=== PATIENT | female | born 1985 | race American Indian/Alaskan Native ===

== ENCOUNTER 2021-10-07 17:16 | Emergency (ER) | payer SELFPAY ==
[2021-10-07 17:56] VITALS: BP 137/92
== END 2021-10-08 08:24 | disposition left against medical advice (07) ==
LOC: ED 17:16
DX: M79.2 Neuralgia and neuritis, unspecified (principal); Z53.21 Procedure and treatment not carried out due to patient leaving prior to being seen by health care provider